=== PATIENT | male | born 1945 | race Caucasian/White ===

== ENCOUNTER 2017-10-10 06:20 | Observation (INO) | payer MEDICARE, OTHER ==
--- NOTE | 2017-10-09 13:10 | DIAGNOSTIC IMAGING REPORT ---
CHEST 2 VIEWS ROUTINE CLINICAL HISTORY: K80.20 Cholelithiasispre-op [id number] preoperative evaluation COMPARISON STUDY: No previous studies for comparison. FINDINGS: The bones soft tissues and hemidiaphragms are normal. The cardiomediastinal silhouette is normal. The lungs are clear. The pulmonary vasculature is normal. IMPRESSION: Negative chest. The above report was generated using voice recognition software. It may contain grammatical, syntax or spelling errors. Electronically signed by: Alpesh Briceño M.D. 10/09/2017 1:08 PM Dictated Date/Time: 10/09/2017 1:08 PM
[2017-10-09 15:28] VITALS: BMI 25.0
[~2017-10-10] VITALS: Ht 185.4 cm; Wt 88.6 kg
[2017-10-10] VITALS (8 sets, daily range): BP systolic 151–163; BP diastolic 74–86; PULSE 79–90; TEMP 36.5–36.9; O2SAT 94–97; Ht 185.4 cm; Wt 88.6 kg
[~2017-10-10 06:20] MED LIST: FLOVENT INH; LACTATED RINGER'S 1000ML 1,000 ML IV SCH; LYSI500T4 PO; PSYL0.524 PO
[2017-10-10] MEDS ORDERED: CLINDAMYCIN IV 900 MG in DEXTROSE 5% 50ML IV SCH (07:30)
--- NOTE | 2017-10-10 08:49 | History & Physical Bridge Note ---
H&P Re-Evaluation Bridge Note: I have examined the patient, reviewed the History & Physical and in the interval since the performance of the History & Physical I have noted the following changes of clinical significance: No changes noted
[2017-10-10] MEDS ORDERED: BUPIVACAINE 0.5 % 5 MG/1 ML MPF 30ML VIAL ONE (08:51)
[2017-10-10] MEDS ORDERED: SUCCINYLCHOLINE 100MG/5ML SYR IV ONE (08:55)
[2017-10-10] MEDS ORDERED: PROPOFOL IV EMULSION 10 MG/ML 20 ML VIAL IV ONE (08:55)
[2017-10-10] MEDS ORDERED: FENTANYL CITRATE INJ 50 MCG/1 ML 2 ML VIAL ONE ×2 (08:55→09:33)
[2017-10-10] MEDS ORDERED: MIDAZOLAM HCL 1 MG/ML 2ML VIAL ONE (08:56)
[2017-10-10] MEDS ORDERED: CISATRACURIUM BESYLATE IV SOLN 2 MG/ML 10 ML VIAL ONE (09:19)
[2017-10-10] MEDS ORDERED: EpHEDrine SULFATE INJ 50 MG/ML AMP IV PRN (10:15)
[2017-10-10] MEDS ORDERED: ONDANSETRON INJ 2 MG/ML 2 ML VIAL IV PRN ×2 (10:15→11:15)
[2017-10-10] MEDS ORDERED: LABETALOL HCL IV 5 MG/ML 20ML IV PRN (10:15)
[2017-10-10] MEDS ORDERED: PROMETHAZINE HCL INJ 12.5 MG in SODIUM CHLORIDE 0.9% 50ML 50 ML IV PRN (10:15)
[2017-10-10] MEDS ORDERED: NALOXONE HCL 0.4 MG/1 ML VIAL/CARP IV PRN (10:15)
[2017-10-10] MEDS ORDERED: ATROPINE SULFATE 0.1 MG/ML 5ML SYR IV PRN (10:15)
[2017-10-10] MEDS ORDERED: HYDROmorphone INJ 1 MG/ML SYR IV PRN (10:15)
[2017-10-10] MEDS ORDERED: FLUMAZENIL 0.1 MG/1 ML 10 ML VIAL IV PRN (10:15)
[2017-10-10] MEDS ORDERED: ONDANSETRON INJ 2 MG/ML 2 ML VIAL ONE (10:16)
[2017-10-10] MEDS ORDERED: DEXAMETHASONE SOD INJ 4 MG/ML VIAL ONE (10:16)
[2017-10-10] MEDS ORDERED: NEOSTIGMINE METHYLSULFATE 5 MG/5 ML SYR ONE (10:17)
[2017-10-10] MEDS ORDERED: GLYCOPYRROLATE INJ 0.2 MG/ML VIAL ONE (10:17)
--- NOTE | 2017-10-10 11:00 | [facility] Post Operative Brief Note ---
Immediate Operative Summary Operative Date Oct 10, 2017. Pre-Operative Diagnosis Calculus Cholecystitis Post-Operative Diagnosis Calculus Cholecystitis Procedure(s) Performed Laparoscopic Cholecystectomy Surgeon Dr. Schultz Comb Tender Surgeon(s) Teena Navarro PA-C Estimated Blood Loss mL Findings severely inflamed gallbladder, large stone. Window of safety obtained, cystic duct and artery doubly clipped and divided. good hemostasis. Subxyphoid fascial incision extended to allow for removal of gallbladder and large stone. exophytic liver cyst near gallbladder with abnormal appearance, biopsy performed. Specimens Permanent specimens A: Gallbladder and contents B: Liver Mass Biopsy Drains none Anesthesia GETA Complication(s) None Disposition Recovery Room / PACU
--- NOTE | 2017-10-10 11:10 | [facility] Operative Report ---
Operative Report Operative Date Oct 10, 2017. Pre-Operative Diagnosis Calculus Cholecystitis Post-Operative Diagnosis acute calculus cholecystitis, liver lesion Procedure(s) Performed laparoscopic cholecystectomy, liver biopsy Surgeon Dr. Schultz Latin Professor Surgeon(s) Teena Navarro PA-C Estimated Blood Loss 15 mL Findings severely inflamed gallbladder, large stone. Window of safety obtained, cystic duct and artery doubly clipped and divided. good hemostasis. Subxyphoid fascial incision extended to allow for removal of gallbladder and large stone. exophytic liver cyst near gallbladder with abnormal appearance, biopsy performed. Specimens Permanent specimens A: Gallbladder and contents B: Liver Mass Biopsy Drains none Anesthesia GETA Complication(s) None Disposition Recovery Room / PACU Indications 72-year-old male with a one-month history of intermittent abdominal pain with gallstones and no evidence of cholecystitis on ultrasound. Plan for laparoscopic cholecystectomy with possible cholangiogram. The risks of the procedure were discussed, all questions were answered, and the patient agreed to proceed with surgery as planned. Description of Procedure The patient was properly identified, consented, and taken to the operating room where he was placed in the supine position. General endotracheal anesthesia was induced. SCDs and a safety belt were placed. Preoperative antibiotics were administered. The patient's abdomen was prepped and draped in the standard sterile fashion. A surgical timeout was performed and all parties were in agreement that this was the correct patient and procedure to be performed and we continued as planned. An incision was made in the subxiphoid position and the Veress needle was inserted. Saline drop test confirmed entry into the peritoneum. The abdomen was insufflated with carbon dioxide which the patient tolerated without incident. The abdomen was then entered using the Optiview technique and a 11 mm trocar. The laparoscope was inserted and no damage from initial trocar or Veress needle placement was noted, no gross abnormalities were noted within the 4 quadrants of the abdomen. 5 mm ports were then placed superior to the umbilicus and in the right subcostal position, an additional 3 mm port was placed in the lateral right subcostal position. The patient was placed in reverse Trendelenburg position and rotated towards the left. Omentum was adhesed to the dome of the gallbladder and the gallbladder was adhesed to the anterior abdominal wall. This was taken down with blunt dissection. The gallbladder showed signs of severe inflammation and acute cholecystitis as well as a large stone. It was aspirated with a large needle. The dome of the gallbladder was retracted towards the left upper quadrant and the infundibulum was retracted toward the right lower quadrant revealing Calot' s triangle. Peritoneal attachments were taken down with electrocautery and blunt dissection. The cystic duct and artery were circumferentially dissected. A window of safety was obtained showing the cystic duct entering the gallbladder with no aberrant structures noted. The cystic duct and artery were doubly clipped and divided. The gallbladder was then lifted off the gallbladder fossa with electrocautery. The gallbladder bed was raw and oozing and there was a fair amount of bleeding that was controlled with cautery. There appeared to be good hemostasis. There was a 1 cm slightly abnormal appearing exophytic liver mass that appeared to be a cyst. This was biopsied with the use of electrocautery. Hemostasis in the bed was good. The gallbladder was placed in an Endo Catch bag and removed through the subxiphoid port site, which needed to be extended to accommodate the gallbladder and the large stone. The bag broke during removal of the gallbladder. No spillage of stones or bile occurred inside the abdomen on reexamination. The right upper quadrant was irrigated and hemostasis was found to be good. 5 mm trochars were removed under direct visualization and the abdomen was allowed to collapse. The umbilical port site fascia was closed with 0 Vicryl suture. The wound was irrigated, and the skin of all ports was closed with 4-0 Monocryl subcuticular sutures. Dermabond was placed over the wounds. The patient was extubated in the operating room and taken to the PACU where he recovered without apparent incident. All sponge, instrument and needle counts were correct at the conclusion of the procedure. The patient tolerated the procedure well. Teena Navarro, the physician's supply assistant was present and scrubbed the entire case. She was essential for prepping and draping, positioning, and she is abdomen, retraction and exposure, removal of the gallbladder, and closure. I attest to the content of the Intraoperative Record and any orders documented therein. Any exceptions are noted below.
[2017-10-10] MEDS ORDERED: MoRPHine SULFATE 4 MG/ML 1 ML CARP\\VIAL IV PRN (11:15)
[2017-10-10] MEDS ORDERED: MoRPHine SULFATE 2 MG/ML CARP IV PRN ×2 (11:15)
[2017-10-10] MEDS ORDERED: OXYCODONE/ACETAMINOPHEN 5-325 TAB PO PRN ×2 (11:15)
--- NOTE | 2017-10-10 11:58 | Anesthesiology Progress Note ---
Anesthesia Post Op Note Date & Time Oct 10, 2017 at 11:58 Vital Signs Pain Intensity: 0 Vital Signs Past 12 Hours Date Time Temp Pulse Resp B/P (MAP) Pulse Ox O2 Delivery O2 Flow Rate FiO2 10/10/17 11:55 36.4 85 16 155/82 95 Room Air 10/10/17 11:45 85 16 154/83 99 Nasal Cannula 2 10/10/17 11:35 83 16 159/84 99 Nasal Cannula 2 10/10/17 11:25 83 16 161/82 100 Nasal Cannula 2 10/10/17 11:16 36.2 91 16 158/81 100 Nasal Cannula 2 10/10/17 06:40 36.5 82 20 157/86 (109) 96 Room Air Notes Mental Status: alert / awake / arousable, participated in evaluation Pt Amnestic to Procedure: Yes Nausea / Vomiting: adequately controlled Pain: adequately controlled Airway Patency, RR, SpO2: stable & adequate BP & HR: stable & adequate Hydration State: stable & adequate Anesthetic Complications: no major complications apparent
[2017-10-10] MEDS ORDERED: IV FLUIDS COMPLETED PRN (13:00)
[2017-10-10] MEDS: LACTATED RINGER'S 1000ML 1,000 ML IV SCH ×2 (13:52→22:34)
[2017-10-10] MEDS: CLINDAMYCIN IV 900 MG in DEXTROSE 5% 100ML 100 ML IV SCH (16:45)
[2017-10-11 00:35] VITALS: O2SAT 97
[2017-10-11] MEDS: CLINDAMYCIN IV 900 MG in DEXTROSE 5% 100ML 100 ML IV SCH ×2 (00:57→09:09)
[2017-10-11 06:39] LABS: BASO % 0.1 %; BASO ABS # 0.01 K/uL (0-0.2); EOS % 0.3 %; EOS ABS # 0.03 K/uL (0-0.5); HEMATOCRIT 37.6 % (42-52); HEMOGLOBIN 13.2 g/dL (14.0-18.0); IG# 0.04 K/uL (0.00-0.02); LYMPH % 13.9 %; LYMPH ABS # 1.42 K/uL (1.2-3.4); MEAN CELL VOLUME 91.9 fL (80-100); MEAN CORPUSCULAR HEMOGLOBIN 32.3 pg (25-34); MEAN CORPUSCULAR HGB CONC 35.1 g/dl (32-36); MEAN PLATELET VOLUME 9.4 fL (7.4-10.4); MONO % 8.9 %; MONO ABS # 0.91 K/uL (0.11-0.59); NEUT % 76.4 %; NEUT ABS # 7.83 K/uL (1.4-6.5); PLATELET COUNT 194 K/uL (130-400); RED CELL DISTRIBUTION WIDTH CV 12.9 % (11.5-14.5); RED CELL DISTRIBUTION WIDTH SD 43.3 fL (36.4-46.3); WHITE BLOOD COUNT 10.24 K/uL (4.8-10.8)
[2017-10-11 07:15] LABS: ALBUMIN 2.6 gm/dl (3.4-5.0); CREATININE 0.89 mg/dl (0.60-1.40); POTASSIUM 3.6 mmol/L (3.5-5.1)
[2017-10-11 07:18] LABS: TOTAL PROTEIN 6.4 gm/dl (6.4-8.2)
[2017-10-11 07:33] VITALS: BP 147/77; PULSE 77; TEMP 36.6; O2SAT 96
[2017-10-11] MEDS ORDERED: NURSING VERBAL MED ORDER ONE (07:45)
--- NOTE | 2017-10-11 07:52 | Surgery Progress Note ---
Surgery Progress Note Date of Service Oct 11, 2017. Subjective Post OP Day: 1 + feeling well, + ambulating, + pain controlled, No nausea, No vomiting Patient had issue with poor urinary output yesterday into last evening. Bladder scan completed (708 mL), catheter placed. This AM- Catheter removed. Patient voiding on his own- reports that he did have initial burning with urination, but that has continued to decrease. Objective Vital Signs: Date Time Temp Pulse Resp B/P (MAP) Pulse Ox O2 Delivery O2 Flow Rate FiO2 10/11/17 07:33 36.6 77 20 147/77 (100) 96 Room Air 10/11/17 07:30 Room Air 10/11/17 00:35 97 Room Air 10/10/17 22:51 36.9 79 18 151/74 (99) 96 Room Air 10/10/17 19:15 36.9 79 18 153/76 (101) 96 Room Air 10/10/17 16:20 Room Air 10/10/17 15:20 36.9 90 18 161/82 (108) 95 Room Air 10/10/17 14:20 85 20 157/86 (109) 94 Room Air 10/10/17 13:20 82 16 161/83 (109) 96 Room Air 10/10/17 12:50 36.7 82 19 163/83 (109) 96 Nasal Cannula 2.0 10/10/17 12:20 97 Room Air 10/10/17 12:20 Room Air 10/10/17 12:20 36.7 84 16 157/79 (105) 97 Room Air 10/10/17 11:55 36.4 85 16 155/82 95 Room Air 10/10/17 11:45 85 16 154/83 99 Nasal Cannula 2 10/10/17 11:35 83 16 159/84 99 Nasal Cannula 2 10/10/17 11:25 83 16 161/82 100 Nasal Cannula 2 10/10/17 11:16 36.2 91 16 158/81 100 Nasal Cannula 2 General Appearance: WD/WN, no apparent distress Head: normocephalic, atraumatic Abdomen: non distended, soft, + pertinent finding (trocar sites with dermabond in place, healing well. No drainage, no signs of infection. ) Incision(s): clean, dry, intact Laboratory Results: Results Past 24 Hours Test 10/11/17 04:44 10/11/17 06:12 Range/Units White Blood Count 10.24 4.8-10.8 K/uL Red Blood Count 4.09 4.7-6.1 M/uL Hemoglobin 13.2 14.0-18.0 g/dL Hematocrit 37.6 42-52 % Mean Corpuscular Volume 91.9 80-100 fL Mean Corpuscular Hemoglobin 32.3 25-34 pg Mean Corpuscular Hemoglobin Concent 35.1 32-36 g/dl Platelet Count 194 130-400 K/uL Mean Platelet Volume 9.4 7.4-10.4 fL Neutrophils (%) (Auto) 76.4 % Lymphocytes (%) (Auto) 13.9 % Monocytes (%) (Auto) 8.9 % Eosinophils (%) (Auto) 0.3 % Basophils (%) (Auto) 0.1 % Neutrophils # (Auto) 7.83 1.4-6.5 K/uL Lymphocytes # (Auto) 1.42 1.2-3.4 K/uL Monocytes # (Auto) 0.91 0.11-0.59 K/uL Eosinophils # (Auto) 0.03 0-0.5 K/uL Basophils # (Auto) 0.01 0-0.2 K/uL RDW Standard Deviation 43.3 36.4-46.3 fL RDW Coefficient of Variation 12.9 11.5-14.5 % Immature Granulocyte % (Auto) 0.4 % Immature Granulocyte # (Auto) 0.04 0.00-0.02 K/uL Sodium Level 139 136-145 mmol/L Potassium Level 3.6 3.5-5.1 mmol/L Chloride Level 105 98-107 mmol/L Carbon Dioxide Level 25 21-32 mmol/L Anion Gap 9.0 3-11 mmol/L Blood Urea Nitrogen 12 7-18 mg/dl Creatinine 0.89 0.60-1.40 mg/dl Est Creatinine Clear Calc Drug Dose 84.8 ml/min Estimated GFR () 99.0 Estimated GFR (Non- 85.4 BUN/Creatinine Ratio 13.1 10-20 Random Glucose 100 70-99 mg/dl Calcium Level 9.0 8.5-10.1 mg/dl Total Bilirubin 0.6 0.2-1 mg/dl Direct Bilirubin 0.2 0-0.2 mg/dl Aspartate Amino Transf (AST/SGOT) 63 15-37 U/L Alanine Aminotransferase (ALT/SGPT) 88 12-78 U/L Alkaline Phosphatase 85 45-117 U/L Total Protein 6.4 6.4-8.2 gm/dl Albumin 2.6 3.4-5.0 gm/dl Assessment & Plan POD #1- s/p Laparoscopic Cholecystectomy with Dr. Schultz. Patient tolerating regular diet. No nausea or vomiting. Voiding issues resolving. D/C IV fluids. Ambulating. Pain controlled. Possible discharge today after lunch. Written and verbal discharge instructions provided to patient. Patient to follow-up in General Surgery Clinic in 1-2 weeks.
[2017-10-11] MEDS ORDERED: OXYC-57 PO (07:55)
--- NOTE | 2017-10-11 07:55 | Discharge Instructions ---
Discharge Instructions Date of Service Oct 11, 2017. Admission Reason for Admission: Cholelithiasis Discharge Discharge Diagnosis / Problem: Cholelithiasis Discharge Goals Goal(s): Decrease discomfort, Improve function Activity Recommendations Activity Limitations: as noted below Lifting Limitations: no more than 10 pounds Exercise/Sports Limitations: until after follow-up appointment May Resume Sexual Activity: after follow-up appointment Shower/Bathe: no limitations Driving or Machine Use: resume 1 day after discharge . Instructions / Follow-Up Instructions / Follow-Up Please follow-up with Dr. Schultz in the General Surgery Clinic in 1-2 weeks. Please call the office at [phone] to schedule this follow-up appointment. Please call the office with any questions or concerns. Current Hospital Diet Patient's current hospital diet: Regular Diet Discharge Diet Recommended Diet: Regular Diet Procedures Procedures Performed: Laparoscopic Cholecystectomy Pending Studies Studies pending at discharge: yes List of pending studies: Pathology report. Medical Emergencies . Who to Call and When: Medical Emergencies: If at any time you feel your situation is an emergency, please call 911 immediately. . Non-Emergent Contact Non-Emergency issues call your: Primary Care Provider, Surgeon Call Non-Emergent contact if: temperature is above 101.5, your pain is not controlled, wound has increased drainage, wound has increased redness . "Provider Documentation" section prepared by Teena Navarro. . VTE Core Measure Inpt VTE Proph given/why not?: [facility] [place] Drug Monitoring Program Search Results: patient reviewed within database, no issues identified
[2017-10-11] MEDS ORDERED: FLUTICASONE HFA 110MCG INHALER INH SCH (09:00)
[2017-10-11] MEDS ORDERED: LYSINE PO SCH (09:00)
[2017-10-11] MEDS ORDERED: PSYLLIUM 58.6% PWD PACK S\\F PO SCH (09:00)
[2017-10-11 09:10] VITALS: BP 147/77; PULSE 77; TEMP 36.6; O2SAT 96
== END 2017-10-11 11:08 | disposition home or self-care (01) ==
LOC: C.ACU 06:20 → C.MSW 11:20 → ENRESERV 11:39
PROVIDERS: ADMIT Surgery; ATTEND Surgery
DX: K80.12 Calculus of gallbladder with acute and chronic cholecystitis without obstruction (principal); K76.89 Other specified diseases of liver; J45.909 Unspecified asthma, uncomplicated; Z79.899 Other long term (current) drug therapy; I10 Essential (primary) hypertension; M19.90 Unspecified osteoarthritis, unspecified site